=== PATIENT | female | born 1980 | race Caucasian/White ===

== ENCOUNTER 2019-01-01 02:23 | Inpatient (IN) | payer MEDICAID, OTHER ==
[~2019-01-01] VITALS: Ht 152.4 cm; Wt 72.4 kg
[2019-01-01 02:41] VITALS: BP 129/76; PULSE 76; RESP 18
[2019-01-01] MEDS ORDERED: LACTATED RINGER'S 1,000 ML IV PRN (03:24)
[2019-01-01] MEDS ORDERED: BUTORPHANOL 2 MG INJ IV PRN (03:30)
[2019-01-01] MEDS ORDERED: LIDOCAINE 1% (MPF) 30 ML INJ INJ PRN (03:30)
[2019-01-01] MEDS ORDERED: BUTORPHANOL 1 MG INJ IV PRN (03:30)
[2019-01-01] MEDS ORDERED: MISOPROSTOL 200 MCG TAB PR PRN ×2 (03:30→15:00)
[2019-01-01] MEDS ORDERED: DEXTROSE 5%-LR 1,000 ML IV PRN (03:30)
[2019-01-01] MEDS ORDERED: OXYTOCIN 30 UNITS/LR 500 ML IV PRN ×2 (03:30→15:00)
[2019-01-01] MEDS ORDERED: OXYTOCIN 30 UNITS/LR 500 ML IV SCH ×4 (03:30→14:43)
[2019-01-01] MEDS ORDERED: IBUPROFEN 600 MG TAB PO PRN (03:30)
[2019-01-01] MEDS ORDERED: CARBOPROST 250 MCG INJ IM PRN ×2 (03:30→15:00)
[2019-01-01] MEDS ORDERED: METHYLERGONOVINE 0.2 MG INJ IM PRN ×2 (03:30→15:00)
[2019-01-01] MEDS ORDERED: PREN-99 PO (03:34)
--- NOTE | 2019-01-01 03:44 | TRIAGE ---
OB Triage Datetime Report Generated by CPN: 01/01/2019 03:43 Datetime: 01/01/2019 03:24 Membrane Status: Ruptured Datetime: 01/01/2019 03:05 Vaginal Exam Dilatation (cms): 2.5 Effacement (%): 70 Station: -2 Exam By: caty stuart RN Amniotic Fluid Color: Clear Amniotic Fluid Amount: Small Amniotic Fluid Odor: Normal Pool: Positive Nitrazine: Positive Cervix, Consistency: Soft Cervix, Position: Posterior Presentation 'A': Cephalic Datetime: 01/01/2019 02:43 Time of Arrival: 01/01/2019 02:15 EGA: 35.5 Arrived By: Wheelchair Arrived From: Home Chief Complaint: c/o uterine contractions and possible SROM at 0000 Movement: Present Contractions: Irregular Time Contractions Began: 01/01/2019 00:00 Rupture of Membranes: Unsure Vaginal Bleeding: None Vaginal Discharge: Present Recent Sexual Intercouse: Denies Abdominal Trauma: Not Applicable Patient Complaints: Contractions Time Provider Notified: 01/01/2019 02:50 Provider Notified: SALCEDA Initial Plan: EFM, SVE, NITRAZINE, STERILE Datetime: 01/01/2019 02:41 Stage of : OB Triage Assessment Type: Triage Maternal Assessment Level of Consciousness: Fully Conscious DTR's/Clonus: DTRs 2+; No Clonus Headache: Denies Blurred Vision: No Respiratory Effort: Unlabored; Regular Rhythm; Equal Expansion Breath Sounds, Left: Clear and Equal Breath Sounds, Right: Clear and Equal Nausea/Vomiting: Denies RUQ Epigastric Pain: Denies Facial Edema: None Temperature Route: Oral Fall Risk Assessment History of Falling: (0) No Secondary Diagnosis: (0) No Ambulatory Aid: (0) Bedrest/Nurse Assist IV Therapy: (0) No Gait: (0) Normal/Bedrest/Immobile Mental Status: (0) Oriented to Own Ability Fall Score: 0 Fall Risk Score Definition: No Risk: No action required Pain Assessment Pain Scale: 5 Pain Presence: Intermittent Pain Type: Contraction Pain Location: Abdomen Pain Goal: 2 Pain Relief Measures: Comfort Measures Datetime: 01/01/2019 02:40 Labor Evaluation Monitor Mode: External Datetime: 01/01/2019 02:38 Labor Evaluation Monitor Mode: External Heart Rate Monitor Mode: External US Datetime: 01/01/2019 02:34 Stage of : OB Triage Datetime: 01/01/2019 00:00 Membranes Ruptured Date/Time: 01/01/2019 00:00 Membranes Rupture Method: Spontaneous (Annotations: pt states there was a gush of fluid at home at this time) Amniotic Fluid Color: Clear Amniotic Fluid Amount: Large
--- NOTE | 2019-01-01 03:46 | TRIAGE ---
OB Triage Datetime Report Generated by CPN: 01/01/2019 03:46 Datetime: 01/01/2019 02:43 Initial Plan: EFM, SVE, NITRAZINE, STERILE SPECULUM
[2019-01-01] MEDS ORDERED: AMPICILLIN 2 GM/NS (PMX) 100 ML IV ONE (04:00)
[2019-01-01 04:11] VITALS: BP 125/73; PULSE 72; RESP 18
[2019-01-01] MEDS: BETAMET NA PHOS/AC(6 MG/ML) 2 ML INJ SYG IM SCH ×2 (04:31→16:00)
[2019-01-01] MEDS: LACTATED RINGER'S 1,000 ML IV SCH ×2 (04:49→10:56)
[2019-01-01] MEDS: AMPICILLIN 1 GM/NS (PMX) 50 ML IV SCH ×3 (08:41→20:53)
[2019-01-01] MEDS ORDERED: FENTAnyl 2MCG/ML-ROPIV 0.2% 100 ML ONE (10:43)
--- NOTE | 2019-01-01 10:45 | PREAC ---
Date/Time of Note Date/Time of Note DATE: 01/01/19 TIME: 10:44 Anesthesia Eval and Record Evaluation Time Pre-Procedure Interview DATE: 01/01/19 TIME: 10:44 Age 38 Sex female NPO: 8 hrs Preoperative diagnosis Labor Pain Planned procedure Labor Epidural Past Medical History Past Medical History: Includes Heme: Anemia : : (3), Para: (1), Gestational age: (36) Surgery & Anesthesia Issues No known issue Meds Anticoagulation: No Beta Noel within 24 hr: No Reason Beta Noel not given: Pt. not on B-Noel Reported Medications Vit #76/Iron,Carb/FA (Pnv 29-1 Tablet) 1 Each Tablet, 1 EACH PO, TAB 01/01/19 Current Medications Lactated Ringer's 1,000 ml @ 125 mls/hr Q8H IV Last administered on 01/01/19at 04:49; Admin Dose 125 MLS/HR; Start 01/01/19 at 03:24 Dextrose/Lactated Ringer's 1,000 ml @ 125 mls/hr Q8H PRN IV DECREASED GLUCOSE; Start 01/01/19 at 03:30 Ampicillin 50 ml @ 100 mls/hr Q4H IV Last administered on 01/01/19at 08:41; Admin Dose 100 MLS/HR; Start 01/01/19 at 08:00 Butorphanol Tartrate (Stadol) 1 mg Q2H PRN IV .PAIN; Start 01/01/19 at 03:30 Butorphanol Tartrate (Stadol) 2 mg Q2H PRN IV .PAIN; Start 01/01/19 at 03:30 Lidocaine (Xylocaine 1% (Mpf)) 30 ml ONCE PRN INJ .EPISIOTOMY; Start 01/01/19 at 03:30 Oxytocin/Lactated Ringer's 500 ml @ 500 mls/hr ONCE POST IV ; Start 01/01/19 at 03:30 Oxytocin/Lactated Ringer's 500 ml @ 125 mls/hr POST IV ; Start 01/01/19 at 03:30 Ibuprofen (Motrin) 600 mg ONCE PRN PO .PAIN 1-5; Start 01/01/19 at 03:30 Lactated Ringer's 1,000 ml @ 2,000 mls/hr Q30M PRN IV .ANESTHESIA Last administered on 01/01/19at 10:12; Admin Dose 2,000 MLS/HR; Start 01/01/19 at 03:24 Oxytocin/Lactated Ringer's 500 ml @ 0 mls/hr ONCE PRN IV .VAGINAL BLEEDING; Start 01/01/19 at 03:30 Methylergonovine Maleate (Methergine) 0.2 mg ONCE PRN IM .VAGINAL BLEEDING; Start 01/01/19 at 03:30 Carboprost Tromethamine (Hemabate) 250 mcg ONCE PRN IM .VAGINAL BLEEDING; Start 01/01/19 at 03:30 Misoprostol (Cytotec) 1,000 mcg ONCE PRN VT .VAGINAL BLEEDING; Start 01/01/19 at 03:30 Betamethasone Acet/Betameth SodPhos (Celestone Soluspan) 12 mg Q12H IM Last administered on 01/01/19at 04:31; Admin Dose 12 MG; Start 01/01/19 at 04:00; Stop 01/01/19 at 16:01 Oxytocin/Lactated Ringer's 500 ml @ 0 mls/hr FOR AUGMENTATION IV Last administered on 01/01/19at 10:14; Admin Dose 2 MLS/HR; Start 01/01/19 at 09:57 Meds reviewed: Yes Allergies Coded Allergies: No Known Allergy (Unverified , 01/01/19) Allergies Reviewed: Yes Labs/Studies Labs Reviewed: Reviewed by anesthesiologist Result Diagram: 01/01/19 0348 01/01/19 0348 Laboratory Tests 01/01/19 03:48 Blood Bank Test 01/01/19 03:48 Antibody Screen NEGATIVE Blood Type O POSITIVE Rh Immune Globulin Candidate NO test: Positive Studies: ECG (n/a), CXR (n/a) Pre-procedure Exam Last vitals Vital Signs Date Temp Pulse Resp B/P (MAP) Pulse Ox O2 O2 Flow FiO2 Time Delivery Rate 01/01/19 98.1 72 18 125/73 Room Air 04:11 (90) Airway: Adequate mouth opening, Adequate thyromental dist Mallampati: Mallampati II Teeth: Normal Lung: Normal Heart: Normal ASA Physical Status ASA physical status: 2 Emergency: None Planned Anesthetic Neuraxial: Epidural Planned Pain Management Epidural Pre-operative Attestations Prior to commencing anesthesia and surgery, the patient was re-evaluated, there was verification of: *The patient's identity *The results of appropriate recent lab work and preoperative vital signs *The above evaluation not changing prior to induction *Anesthetic plan, risk benefits, alternative and complications discussed with patient/family; questions answered; patient/family understands, accepts and wishes to proceed. ANA LEBRON MD Jan 01, 2019 10:45
--- NOTE | 2019-01-01 10:47 | PAC ---
Date/Time of Note Date/Time of Note DATE: 01/01/19 TIME: 10:46 Post-Anesthesia Notes Post-Anesthesia Note Last documented vital signs Vital Signs Date Temp Pulse Resp B/P (MAP) Pulse Ox O2 O2 Flow FiO2 Time Delivery Rate 01/01/19 98.1 72 18 125/73 99 Room Air 10:46 (90) Activity: WNL Respiratory function: WNL Cardiovascular function: WNL Mental status: Baseline Pain reasonably controlled: Yes Hydration appropriate: Yes Nausea/Vomiting absent: Yes ANA LEBRON MD Jan 01, 2019 10:47
[2019-01-01] MEDS ORDERED: NALOXONE (0.4 MG/ML) INJ IV PRN (11:00)
[2019-01-01] MEDS ORDERED: FENTAnyl 2MCG/ML-ROPIV 0.2% 100 ML BAG EPI SCH (11:00)
[2019-01-01] MEDS ORDERED: DIPHENHYDRAMINE 25 MG CAP PO PRN (15:00)
[2019-01-01] MEDS ORDERED: METHYLERGONOVINE 0.2 MG TAB PO PRN (15:00)
[2019-01-01] MEDS ORDERED: LANOLIN HPA 1 PKT TOP PRN (15:00)
[2019-01-01] MEDS ORDERED: HYDROCODONE/APAP (5/325) TAB PO PRN ×2 (15:00)
[2019-01-01] MEDS ORDERED: MAGNESIUM HYDROXIDE 30ML CUP PO PRN (15:00)
[2019-01-01] MEDS ORDERED: ZOLPIDEM 5 MG TAB PO PRN (15:00)
[2019-01-01] MEDS ORDERED: NA PHOSPHATE/BIPHOS 133 ML ENEMA PR PRN (15:00)
[2019-01-01] MEDS ORDERED: ONDANSETRON 4 MG INJ IV PRN (15:00)
[2019-01-01] MEDS: WITCH HAZEL/GLYCERIN PAD PR PRN (19:02)
[2019-01-01] MEDS: BENZOCAINE 20% 56 ML SPRAY TOP PRN (19:02)
[2019-01-01 20:15] VITALS: BP 118/70; PULSE 68; RESP 19
[2019-01-01] MEDS: LACTATED RINGER'S 1,000 ML IV* SCH (20:53)
[2019-01-01] MEDS: SENNA/DOCUSATE NA (8.6MG/50MG) TAB PO SCH (21:51)
[2019-01-01] MEDS: IBUPROFEN 600 MG TAB PO PRN (21:51)
[2019-01-02] MEDS: LACTATED RINGER'S 1,000 ML IV* SCH (00:27)
[2019-01-02 04:00] VITALS: BP 116/73; PULSE 72; RESP 19
[2019-01-02 08:30] VITALS: BP 116/70; PULSE 79; RESP 18
[2019-01-02] MEDS: SENNA/DOCUSATE NA (8.6MG/50MG) TAB PO SCH ×2 (08:47→21:44)
[2019-01-02] MEDS: IBUPROFEN 600 MG TAB PO PRN (08:48)
--- NOTE | 2019-01-02 15:39 | PN ---
Date/Time of Note Date/Time of Note DATE: 01/02/19 TIME: 15:38 Assessment/Plan VTE Prophylaxis Risk score (from Ns)>0 risk: 1 SCD applied (from Ns): No SCD contraindicated: low risk/ambulating Pharmacological prophylaxis: NA/contraindicated Pharm contraindication: low risk/ambulating Lines/Catheters IV [facility]from [facility] Peripheral IV Assessment/Plan Assessment/Plan POST DAY 1 HOME TOMORROW RETURN TO CLINIC IN 2 WEEKS CONTINUE WITH VITAMINS OD AND FERROUS SULFATE PO TID DIET ADVISED COUNSELED INSTRUCTED CALL OFFICE IF THERE IS ANY PROBLEMS OR CONCERN Result Diagram: 01/02/19 0626 01/01/19 0348 Results 24hrs Laboratory Tests Test 01/02/19 06:26 White Blood Count 17.4 #H Red Blood Count 3.71 L Hemoglobin 11.0 L Hematocrit 32.7 L Mean Corpuscular Volume 88.1 Mean Corpuscular Hemoglobin 29.6 Mean Corpuscular Hemoglobin Concent 33.6 Red Cell Distribution Width 13.2 Platelet Count 252 Mean Platelet Volume 9.1 Immature Granulocytes % 2.600 H Neutrophils % 74.1 Lymphocytes % 16.8 Monocytes % 6.1 Eosinophils % 0.2 Basophils % 0.2 Nucleated Red Blood Cells % 0.0 Immature Granulocytes # 0.460 H Neutrophils # 12.9 H Lymphocytes # 2.9 Monocytes # 1.1 H Eosinophils # 0.0 Basophils # 0.0 Nucleated Red Blood Cells # 0.0 Subjective 24 Hr Interval Summary Free Text/Dictation FEELS GOOD, GOOD URINE OUTPUT, GOOD BOWEL MOVEMENT Exam/Review of Systems Exam Vitals Vital Signs Date Temp Pulse Resp B/P (MAP) Pulse Ox O2 O2 Flow FiO2 Time Delivery Rate 01/02/19 98.0 79 18 116/70 Room Air 08:30 (85) Intake and Output 01/01/19 01/01/19 01/02/19 1515:00 23:00 07:00 IntakeIntake Total 2487 ml 880 ml OutputOutput Total 1750 ml 837 ml BalanceBalance 737 ml 43 ml Exam VITAL SIGNS STABLE: YES AFEBRILE: YES BREAST NOT ENGORGED, NON-TENDER, NO APPRECIABLE MASS: YES LUNGS CLEAR, NO RALES, WHEEZES, RHONCHI: YES SINUS RHYTHM WITHOUT MURMUR: YES ABDOMEN: NON-TENDER FUNDUS: BELOW UMBILICUS BOWEL SOUNDS: PRESENT UTERUS: FIRM EPISIOTOMY HEALING WELL LOCHIA: LIGHT DEEP TENDON REFLEXES: 0 EXTREMITIES: NO CALF TENDERNESS EDEMA SCALE: NONE Results Results 24hrs Laboratory Tests Test 01/02/19 06:26 White Blood Count 17.4 #H Red Blood Count 3.71 L Hemoglobin 11.0 L Hematocrit 32.7 L Mean Corpuscular Volume 88.1 Mean Corpuscular Hemoglobin 29.6 Mean Corpuscular Hemoglobin Concent 33.6 Red Cell Distribution Width 13.2 Platelet Count 252 Mean Platelet Volume 9.1 Immature Granulocytes % 2.600 H Neutrophils % 74.1 Lymphocytes % 16.8 Monocytes % 6.1 Eosinophils % 0.2 Basophils % 0.2 Nucleated Red Blood Cells % 0.0 Immature Granulocytes # 0.460 H Neutrophils # 12.9 H Lymphocytes # 2.9 Monocytes # 1.1 H Eosinophils # 0.0 Basophils # 0.0 Nucleated Red Blood Cells # 0.0 Medications Medication Current Medications Oxytocin/Lactated Ringer's 500 ml @ 0 mls/hr FOR AUGMENTATION IV Last administered on 01/01/19at 10:14; Admin Dose 2 MLS/HR; Start 01/01/19 at 09:57 Naloxone HCl (Narcan) 0.2 mg Q2M PRN IV .RESP RATE; Start 01/01/19 at 11:00 Fentanyl/ Ropivacaine 100 ml EPIDURAL (PCEA) EPI ; Start 01/01/19 at 11:00 Methylergonovine Maleate (Methergine) 0.2 mg Q6H PRN PO .VAGINAL BLEED; Start 01/01/19 at 15:00 Ibuprofen (Motrin) 600 mg Q6 PRN PO MILD PAIN LEVEL 1-3 Last administered on 01/02/19at 08:48; Admin Dose 600 MG; Start 01/01/19 at 15:00 Acetaminophen/ Hydrocodone Bitart ([place] (5/325)) 1 tab Q4H PRN PO MODERATE PAIN LEVEL 4-6; Start 01/01/19 at 15:00 Acetaminophen/ Hydrocodone Bitart ([place] (5/325)) 2 tab Q4H PRN PO SEVERE PAIN LEVEL 7-10; Start 01/01/19 at 15:00 Ondansetron HCl (Zofran Inj) 4 mg Q6H PRN IV NAUSEA/VOMITING; Start 01/01/19 at 15:00 Diphenhydramine HCl (Benadryl) 25 mg Q6H PRN PO .PRUTITUS; Start 01/01/19 at 15:00 Zolpidem Tartrate (Ambien) 5 mg QHS PRN PO .INSOMNIA; Start 01/01/19 at 15:00 Senna/Docusate Sodium (Senokot-S) 1 tab BID PO Last administered on 01/02/19at 08:47; Admin Dose 1 TAB; Start 01/01/19 at 21:00 Magnesium Hydroxide (Milk Of Mag) 30 ml Q12H PRN PO .CONSTIPATION; Start 01/01/19 at 15:00 Sodium Biphosphate/ Sodium Phosphate (Fleet Enema) 133 ml DAILY PRN CA .CONSTIPATION; Start 01/01/19 at 15:00 Witch Felicia/ Glycerin (Tucks Pads) 1 pad BEDSIDE MEDICATION PRN CA .HEM ORRHOID/EPISIOTOMY PAIN Last administered on 01/01/19at 19:02; Admin Dose 40 PAD; Start 01/01/19 at 15:00 Benzocaine (Dermoplast [place]) 1 spray BEDSIDE MEDICATION PRN TOP .HEMMORHOID/EPISIOTOMY PAIN Last administered on 01/01/19at 19:02; Admin Dose 56 SPRAY; Start 01/01/19 at 15:00 Lanolin (Lanolin Hpa) 1 applic BEDSIDE MEDICATION PRN TOP .NIPPLES; Start 01/01/19 at 15:00 Measles/Mumps/ Rubella Vaccine Live (Mmr Ii Vaccine) 0.5 ml ONCE ONCE SC* ; Start 01/03/19 at 09:00; Stop 01/03/19 at 09:01 Diphtheria/ Tetanus/Acell Pertussis (Adacel) 0.5 ml ONCE ONCE IM* ; Start 01/03/19 at 09:00; Stop 01/03/19 at 09:01 Varicella Virus Vaccine Live (Varivax Vaccine With Diluent) 1,350 unit ONCE ONCE SC* ; Start 01/03/19 at 09:00; Stop 01/03/19 at 09:01 Oxytocin/Lactated Ringer's 500 ml @ 0 mls/hr ONCE PRN IV .VAGINAL BLEEDING; Start 01/01/19 at 15:00 Methylergonovine Maleate (Methergine) 0.2 mg ONCE PRN IM .VAGINAL BLEEDING; Start 01/01/19 at 15:00 Carboprost Tromethamine (Hemabate) 250 mcg ONCE PRN IM .VAGINAL BLEEDING; Start 01/01/19 at 15:00 Misoprostol (Cytotec) 1,000 mcg ONCE PRN CA .VAGINAL BLEEDING; Start 01/01/19 at 15:00 BYRON CUADRA MD Jan 02, 2019 15:39
[2019-01-02 16:00] VITALS: BP 109/71; PULSE 72; RESP 18
[2019-01-02 21:00] VITALS: BP 121/69; PULSE 80; RESP 17
[2019-01-03 04:01] VITALS: BP 120/67; PULSE 68; RESP 18
[2019-01-03] MEDS: IBUPROFEN 600 MG TAB PO PRN (05:36)
[2019-01-03] MEDS: WITCH HAZEL/GLYCERIN PAD PR PRN ×2 (05:36→08:22)
[2019-01-03 08:00] VITALS: BP 114/71; PULSE 69; RESP 18
--- NOTE | 2019-01-03 08:15 | PREOPHP ---
DATE OF ADMISSION: 01/01/2019 HISTORY OF PRESENT ILLNESS: This is a 38-year-old lady, 3, para 1. Her EDC on 01/31/2019, 3 5 and 5/7 weeks, admitted to labor and delivery area because of a spontaneous ruptured bag of water a t 12:00 midnight on 01/01/2019 followed by good contractions. She had care at Dr. Rosa'devaughn [facility] at [facility] and the care was uneventful except that she has gestational diabe kelvin and on diet control. PAST PERSONAL HISTORY: No history of TB, asthma. ALLERGIES: NO ALLERGIES. SOCIAL HISTORY: The patient does not smoke. She does not drink. MEDICATIONS: She does not take any drugs except her iron and vitamins. GYNECOLOGIC HISTORY: She had menarche at the age of 13, every 28 days interval, 3 to 4 days duration , and moderate in amount. FAMILY HISTORY: Noncontributory. OBSTETRICAL HISTORY: She is 3, para 1. GYNECOLOGICAL HISTORY: Her first delivery was 9 years ago, normal delivery. Baby weighed 6 pounds 1 4 ounces. She had a spontaneous on 04/15/2018. REVIEW OF SYSTEMS: CARDIOVASCULAR: No chest pains. RESPIRATORY: No cough. GASTROINTESTINAL: No diarrhea, no vomiting. GENITOURINARY: No dysuria. PHYSICAL EXAMINATION: GENERAL: Reveals a conscious, coherent lady and in no acute distress. VITAL SIGNS: Her blood pressure 120/80, pulse rate 80 per minute, respirations 16 per minute. BREASTS, HEART AND LUNGS: Within normal limits. ABDOMEN: Soft. No organomegaly. Fundic height 36 cm. heart tones 140 per minute. PELVIC: Done by me at 9:45 a.m. on 01/01/2019 revealed the cervix to be 5 cm dilated, 100% effaced, station 0 in cephalic presentation with the bag of water ruptured. Nitrazine test was positive. EXTREMITIES: No pedal edema. ADMITTING DIAGNOSIS: 35 and 5/7 weeks intrauterine in labor with ruptured bag of water. T he patient was given betamethasone and IV antibiotics. PLAN: The patient was planned to be delivered. Dr. Taylor was consulted and she advised delivery as well, so she was planned to have Pitocin augmentation. The plans were explained to the patient and s he understood everything totally. The risks, benefits and alternatives were discussed with her as we ll. The patient progressed well. She received labor epidural. Dictated By: BYRON CUADRA MD NS/NTS Conf#: [id number] DID#: [id number] CC: TIARRA ROSA MD; BYRON CUADRA MD;*EndCC*
--- NOTE | 2019-01-03 08:20 | OPR ---
DATE OF OPERATION: 01/03/2019 PREOPERATIVE DIAGNOSES: This is a 38-year-old lady, 3, para 1, EDC 01/31/2019 at 35 and 5/7 weeks, admitted in labor with ruptured bag of water. POSTOPERATIVE DIAGNOSES: This is a 38-year-old lady, 3, para 1, EDC 01/31/2019 at 35 and 5/7 weeks, admitted in labor with ruptured bag of water. HISTORY OF PRESENT ILLNESS: See dictated history and physical. PHYSICAL EXAMINATION: See dictated history and physical. ADMITTING DIAGNOSIS: 35 and 5/7 weeks intrauterine in labor with ruptured bag of water. PROGRESS OF LABOR: See dictated history and physical. OPERATION PERFORMED: The patient received labor epidural and she progressed well. She had a normal spontaneous vaginal delivery and delivered a healthy baby girl on 01/01/2009 at 13:40 p.m. delivering a girl, 9 and 9, weighing 5 pounds 14 ounces, 2655 grams over a midline episiotomy. The place nta was delivered spontaneously and complete. Manual exploration of the uterus revealed no mem branes left behind. The cervix, vagina, and vulva were free of hematoma. The position was direct oc ciput anterior. There were 3 vessels in the cord. The placenta was normal with a smooth shiny side and a pinkish maternal side. Midline episiotomy was repaired in layers using 2-0 chromic with one using 2-0 chromic with her labor epidural. The patient tolerated the delivery well. Estimated b lood loss was about 300 mL. Vital signs were stable during and after the delivery. She delivered a healthy baby girl on 01/01/2009, at 13:40 p.m. 9 and 9, weighing 5 pounds 14 ounces, 2655 gram s. Dictated By: BYRON CUADRA MD NS/NTS Conf#: [id number] DID#: [id number] CC: BYRON CUADRA MD;*EndCC*
[2019-01-03] MEDS: BENZOCAINE 20% 56 ML SPRAY TOP PRN (08:22)
[2019-01-03] MEDS: SENNA/DOCUSATE NA (8.6MG/50MG) TAB PO SCH (08:22)
[2019-01-03] MEDS ORDERED: DIPHTH/TET/ACEL PERTUSS (ADULT) 0.5 ML VIAL IM* ONE (09:00)
[2019-01-03] MEDS ORDERED: VARICELLA VACCINE LIVE/PF 1,350 UNIT/0.5 ML ML SC* ONE (09:00)
[2019-01-03] MEDS ORDERED: MEASLES,MUMPS,RUBELLA VACCINE INJ SC* ONE (09:00)
--- NOTE | 2019-01-04 16:22 | DELSUM ---
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 Babies in Womb: 1 Attempted: No Labor Anesthesia: Epidural LABOR INFORMATION Reason for Induction: Not Applicable Onset of Labor: 01/01/2019 00:00 Complete Dilatation: 01/01/2019 13:29 Oxytocin: Augmentation Group B Beta Strep: Negative Antibiotics # of Doses: ampicillin x 3 Antibiotics Time of Last Dose: 01/01/2019 12:49 Steroids Given: Partial Course Reason Steroids Not Administered: Not Applicable MEMBRANES Membranes Rupture Method: Spontaneous (Annotations: pt states there was a gush of fluid at home at t his time) Rupture of Membranes: 01/01/2019 00:00 Length of Rupture (hr): 13.67 Amniotic Fluid Color: Clear Amniotic Fluid Amount: Large Amniotic Fluid Odor: Normal STAGES OF LABOR Stage 1 hr: 13 Stage 1 min: 29 Stage 2 hr: 0 Stage 2 min: 11 Stage 3 hr: 0 Stage 3 min: 5 Total Time in Labor hr: 13 Total Time in Labor min: 45 VAGINAL DELIVERY Episiotomy: None Laceration Extension: Second Degree Laceration Type: Perineal Other Laceration: 2 degree midline tear Laceration Repair: Yes Initial Vag Sponge Count: 10 Final Vag Sponge Count: 10 Initial Vag Sharps Count: 1 Final Vag Sharps Count: 2 Sponge Count Correct: Yes Sharps Count Correct: Yes Count Comment: 1 suture added BABY A INFORMATION Infant Delivery Date/Time: 01/01/2019 13:40 Method of Delivery: Vaginal Born in Route : No : N/A Forceps: N/A Vacuum Extraction: N/A Shoulder Dystocia : No SHOULDER DYSTOCIA BABY A Infant Delivery Date/Time: 01/01/2019 13:40 PRESENTATION/POSITION BABY A Presentation: Cephalic Cephalic Presentation: Vertex Vertex Position: Left Occipital Anterior Breech Presentation: N/A PLACENTA INFORMATION BABY A Placenta Delivery Time : 01/01/2019 13:45 Placenta Method of Delivery: Spontaneous Placenta Status: Delivered SCORES BABY A Heart Rate 1 min: >100 bpm Resp Effort 1 min: Good Cry Reflex Irritability 1 min: Cough/Sneeze/Pulls Away Muscle Tone 1 min: Active Motion Color 1 min: Body Ardoch, Extremit Blue Resuscitation Effort 1 min: Tactile Stimulation SCORE 1 MIN: 9 Heart Rate 5 min: >100 bpm Resp Effort 5 min: Good Cry Reflex Irritability 5 min: Cough/Sneeze/Pulls Away Muscle Tone 5 min: Active Motion Color 5 min: Body Ardoch, Extremit Blue Resuscitation Effort 5 min: Tactile Stimulation SCORE 5 MIN: 9 INFANT INFORMATION BABY A Gestational Age at Delivery: 35.5 Gestational Status: Late - 34- 36.6 Weeks Outcome : Liveborn Condition : Stable Sex: Female IDENTIFICATION/MEDS BABY A ID Band Number: [id number] ID Band Location: Right Leg; Left Arm Sensor Applied: Yes Sensor Number: [id number] Sensor Location : Cord Clamp Vitamin K Given : Not Given Erythromycin Given: Not Given WEIGHT/LENGTH BABY A Infant Birthweight (gm): 2655 Weight (lb): 5 Weight (oz): 14 Infant Length (in): 19.00 Infant Length (cm): 48.26 CORD INFORMATION BABY A No. Cord Vessels: 3 Nuchal Cord : N/A Cord Blood Taken: Yes Banking/Donate Info: NONE Suction: Mouth; Nose ASSESSMENT BABY A Infant Complications: Multiple Variable Decels Physical Findings at Delivery: Within Normal Limits Respirations: Appears Normal Cannon Pinion Adjuster/ALS Called : No Infant Care By: ISABEL Bee Transferred To: Remains with Mother
== END 2019-01-03 16:21 | disposition home or self-care (01) | DRG 807 ==
LOC: OBT 02:23 → L-D 02:24 → OBT 03:20 → PP1 17:56
PROVIDERS: ADMIT Obstetrics & Gynecology; ATTEND Obstetrics & Gynecology
PROC: 10E0XZZ Delivery of Products of Conception, External Approach (ICD-10-PCS; principal; 2019-01-01)
PROC: 0W8NXZZ Division of Female Perineum, External Approach (ICD-10-PCS; 2019-01-01)
PROC: 4A1HXCZ Monitoring of Products of Conception, Cardiac Rate, External Approach (ICD-10-PCS; 2019-01-01)
DX: O60.14X0 Preterm labor third trimester with preterm delivery third trimester, not applicable or unspecified (principal); Z37.0 Single live birth; Z3A.35 35 weeks gestation of pregnancy
CPT/HCPCS: 62322; 76815; 76818; 81001; 82947; 82962; 85025; 85610; 85730; 86592; 86850; 86900; 86901; 87340; 90716; 99464; G0463; J0290; J0702; J2590; J3010; J7120